=== PATIENT | male | born 1990 | race Caucasian/White ===

== ENCOUNTER 2017-12-18 23:17 | Emergency (ER) | payer OTHER ==
[2017-12-18 23:28] VITALS: BP 118/78
--- NOTE | 2017-12-18 23:43 | EDPHY ---
H & P Stated Complaint: left knee injuried r/t fell at 5pm today Time Seen by Provider: 12/18/17 23:33 HPI/ROS: CHIEF COMPLAINT: Left knee pain basketball today HISTORY OF PRESENT ILLNESS: 26-year-old male via private vehicle complaining of acute left knee pain which occurred when was playing Frisbee today, landed and felt immediate pain to the medial aspect of his knee. He is able to bear weight albeit with pain. Reproducible pain with range of motion. Most comfortable position is near full extension. No gross instability. PRIMARY CARE PROVIDER: REVIEW OF SYSTEMS: A ten point review of systems was performed and is negative with the exception of the items mentioned in the HPI PHYSICAL EXAM (Prior to examination, patient consented to physical exam, hands were washed and my usual and customary physical exam procedures followed) 1) GENERAL: Well-developed, well-nourished, alert and oriented. Appears to be in no acute distress. 2) HEAD: Normocephalic 3) HEENT: Pupils equal, round, reactive to light bilaterally. 4) LUNGS: Breathing comfortably. 5) MUSCULOSKELETAL: Exam of the left lower extremity and knee shows no visible abnormality. Tender to palpation medial aspect of knee. . Compartments are soft. No gross instability. Joint stability testing is limited given the patient's pain with flexion beyond 180 degrees. 6) SKIN: Intact. 7) VASCULAR: DP,PT pulses and cap refill present and brisk distally DIFFERENTIAL DIAGNOSIS: in no particular order including but not limited to fracture, sprain, compartment syndrome, septic arthritis, DVT Xray of the left knee interpreted by myself: no definitive acute osseous abnormality Procedure: Crutches indications for crutch use discussed with patient. Patient fitted for crutches by ER staff. Observed ambulating with crutches. I think the patient has the capacity to safely use crutches. Usual and customary crutch walking precautions provided Procedure: Splint A knee immobilizer splint was applied by ER heating and cooling technician. After application of the splint I returned and re-examined the patient. The splint was adequately immobilizing the joint and distal to the splint the patient's circulation and sensation were intact. Patient shows no signs of compartment syndrome. Was given orthopedic precautions. MEDICAL DECISION MAKING Serial evaluations performed on patient. I discussed the limitations of x-ray in diagnosis of knee pain and injury. At this time I do not think that emergent MRI is currently indicated. However, I have recommended follow-up with Orthopedic surgery and provided this referral information. Informed the patient that outpatient MRI may be indicated. Doubt septic arthritis. Doubt compartment syndrome. Doubt DVT. Patient feels comfortable being discharged. I saw this patient independently based on established practice protocols. Care of patient under supervision of secondary supervising physician Dr Armendariz . - Personal History Current Tetanus Diphtheria and Acellular Pertussis (TDAP): Yes - Medical/Surgical History Hx Asthma: No Hx Chronic Respiratory Disease: No Hx Diabetes: No Hx Cardiac Disease: No Hx Renal Disease: No Hx Cirrhosis: No Hx Alcoholism: No Hx HIV/AIDS: No Hx Splenectomy or Spleen Trauma: No Other PMH: hx left knee surgery, hernia repair - Social History Smoking Status: Former smoker Constitutional: Initial Vital Signs Temperature (C) 37.6 C 12/18/17 23:24 Heart Rate 101 H 12/18/17 23:24 Respiratory Rate 18 12/18/17 23:24 Blood Pressure 118/78 12/18/17 23:24 O2 Sat (%) 95 12/18/17 23:24 O2 Delivery Mode Room Air Allergies/Adverse Reactions: No Known Allergies Allergy (Unverified 12/18/17 23:23) Home Medications: Medication Instructions Recorded NK [No Known Home Meds] 12/18/17 Departure - Departure Disposition: Home, Routine, Self-Care Clinical Impression: Left medial knee pain Condition: Good Instructions: Knee Pain (ED), Hydrocodone/Acetaminophen (By mouth) Additional Instructions: Return to the ER immediately if you experience discoloration, have worsening pain, numbness, tingling, or any other symptoms that concern you. If you received x-rays in the emergency department today, be advised, that ligamentous , tendon, muscular, and other non-bony injury cannot be fully ruled out. Try to keep your affected extremity elevated above the level of your chest, and keep cold packs on the affected area, for the next 48 hours. Pediatric Fever & Pain Control: For fever/pain control we recommend: Acetaminophen (Tylenol) 650mg every 4 to 6 hours as needed Ibuprofen (Advil, Motrin) 600mg every 6 to 8 hours as needed. *Acetaminophen and Ibuprofen may be given in alternating doses or at the same time for high fever. (NOTE TIME DIFFERENCES) NEVER GIVE ASPIRIN TO AN INFANT OR CHILD. WARNING: THESE MEDICATIONS COME IN DIFFERENT STRENGTHS FOR INFANTS AND CHILDREN. BEFORE GIVING YOUR CHILD A DOSE OF MEDICATION, MAKE SURE THAT YOU ARE GIVING THE APPROPRIATE AMOUNT. Measurements: 1 teaspoon=5ml 1/2 teaspoon =2.5ml Referrals: Enoc Ca MD [Medical Doctor] - As per Instructions
[2017-12-19] MEDS ORDERED: HYDROCOD/APAP 5/325 PREPACK#6 BTL TAKEHOME ONE (00:03)
== END 2017-12-19 00:21 | disposition home or self-care (01) ==
DX: M25.562 Pain in left knee (principal); W50.2XXA Accidental twist by another person, initial encounter; Y93.67 Activity, basketball
CPT/HCPCS: L1830